=== PATIENT | male | born 1965 | race Caucasian/White ===

== ENCOUNTER 2016-11-23 05:57 | Day surgery (SDC) | payer OTHER ==
[~2016-11-23] VITALS: Ht 162.6 cm; Wt 60.5 kg
[2016-11-23 06:28] VITALS: Ht 162.6 cm; Wt 60.5 kg
[2016-11-23 07:13] VITALS: BP 111/73; PULSE 55; RESP 18
[2016-11-23] MEDS ORDERED: FENTAnyl 50 MCG/ML VIAL ONE (07:52)
[2016-11-23] MEDS ORDERED: MIDAZOLAM 1 MG/ML 2 ML INJ ONE ×3 (07:52)
[2016-11-23 08:17] VITALS: BP 106/71; PULSE 58; RESP 18
--- NOTE | 2016-11-23 09:47 | GILP ---
DATE OF PROCEDURE: 11/23/2016 NAME OF PROCEDURE: Colonoscopy. SURGEON: Sixto Barnard MD PREOPERATIVE DIAGNOSIS: Screening colonoscopy. POSTOPERATIVE DIAGNOSES 1. Colonoscopy all the way to the cecum. 2. Internal hemorrhoids. 3. Occasional diverticulosis of the colon. 4. No colon neoplasm was identified. INDICATION FOR THE PROCEDURE: Mr. Baylee Snow is a 51-year-old male patient who was scheduled for scr eening colonoscopy. The procedure and possible complications were well explained to the patient. The patient understood and consented to the procedure. DESCRIPTION OF PROCEDURE: Under the influence of fentanyl and Versed, the colonoscope was carefully introduced in the rectum, and under direct vision it was advanced all the way to the cecum. FINDINGS: The patient had internal hemorrhoids. He had occasional diverticulosis of the colon. No colon neoplasm was identified. He tolerated the procedure very well and there was no complication from the procedure. At the end o f the procedure, he was awake with stable vital signs, and he was discharged home to the care of his family. IMPRESSION: 1. Colonoscopy all the way to the cecum. 2. Internal hemorrhoids. 3. Occasional diverticulosis of the colon. 4. No colon neoplasm was identified. PLAN: Next screening colonoscopy in 10 years. Dictated By: SIXTO MILES/GLADIS Conf#: [id number] DID#: [id number]
== END 2016-11-23 09:44 | disposition home or self-care (01) ==
LOC: GIL 05:57
PROVIDERS: ATTEND Internal Medicine Gastroenterology
DX: Z12.11 Encounter for screening for malignant neoplasm of colon (principal); K64.8 Other hemorrhoids; K57.90 Diverticulosis of intestine, part unspecified, without perforation or abscess without bleeding
CPT/HCPCS: 45378; J2250; J3010; Z7610